=== PATIENT | male | born 1960 | race Caucasian/White ===

== ENCOUNTER 2021-11-22 12:31 | Emergency (ER) | payer MEDICARE, SELFPAY ==
[2021-11-22 12:40] VITALS: BP 162/102; PULSE 82; RESP 16; TEMP 36.7; O2SAT 100
--- NOTE | 2021-11-22 12:43 | ED.GENADULT ---
HPI - General Adult General Chief complaint: Unspecified Stated complaint: Med Refill Time Seen by Provider: 11/22/21 12:40 Source: patient and RN notes reviewed History of Present Illness HPI narrative: Patient is a 61-year-old male who presents the urgent care with request for medication refill on his Keppra and pregabalin. It was noted in patient's pharmacy that he has not refilled her Keppra since April and his pregabalin since August. Patient states that his physician has no longer taking responsibility for refilling his medications because he is missed several appointments . Patient states that he has not seen his provider in a very long time and has been off of his medications since his last refills. Patient is very adamant about getting his refilled medications. Denies of any acute complaints or seizure activity. No acute distress noted. Patient aware of the plan of care. Some parts of this dictation were generated by voice recognition software and may contain typographical and/or grammatical inaccuracies. Related Data Home Medications Medication Instructions Recorded Confirmed levetiracetam 500 mg tablet 500 mg PO BID 11/22/21 11/22/21 pregabalin 300 mg capsule 300 mg PO BID 11/22/21 11/22/21 Allergies Allergy/AdvReac Type Severity Reaction Status Date / Time paliperidone [From Invega] Allergy Anaphylaxis Verified 11/22/21 12:47 Review of Systems Review of Systems: CONSTITUTIONAL: Denies fever, chills, or sweats. EYES: Denies visual changes, redness, or discharge. ENT: Denies rhinorrhea, congestion, sore throat, or otalgia. CARDIOVASCULAR: Denies chest pain, palpitations, or edema. RESPIRATORY: Denies cough or dyspnea. GASTROINTESTINAL: Denies abdominal pain, nausea, vomiting, or diarrhea. GENITOURINARY: Denies dysuria or hematuria. SKIN: Denies rash or itching. MUSCULOSKELETAL: Denies back pain, joint pain, or myalgia. NEUROLOGIC: Denies headache, numbness, or weakness. All other systems reviewed are negative, except as documented in HPI. PMFSH Comments At the time of my signature, I reviewed and agree with the nursing past medical, surgical, social, and family history. There is no relevant family history pertinent to the patient complaint. Exam Narrative: Exam not complete due to elopement Course Course Level of Care: Express Care Visit Vital Signs Vital signs: Vital Signs Temperature 98.1 F 11/22/21 12:40 Pulse Rate 82 11/22/21 12:40 Respiratory Rate 16 11/22/21 12:40 Blood Pressure 162/102 H 11/22/21 12:40 Pulse Oximetry 100 11/22/21 12:40 Oxygen Delivery Room Air 11/22/21 12:40 Temperature 98.1 F 11/22/21 12:49 Pulse Rate 82 11/22/21 12:49 Respiratory Rate 16 11/22/21 12:49 Blood Pressure 162/102 H 11/22/21 12:49 Pulse Oximetry 100 11/22/21 12:49 Oxygen Delivery Room Air 11/22/21 12:49 Reviewed-patient is informed that they may have pre-hypertension or hypertension based on a blood pressure reading in the department. I recommend the patient call the primary care provider listed on their discharge instructions or a physician of their choice this week to arrange follow-up for further evaluation of possible pre-hypertension or hypertension. Medical Decision Making MDM Narrative Medical decision making narrative: Discussed extensively with the patient that our facility is not responsible for refilling chronic medications, especially those that you have not taken in 6 or 7 months. Patient was visibly upset and got aggressive demanding his medication refills. I did call and speak to the office, patient's previous primary care Dr. Osman, and they stated that they did not send the patient to our facility but they did agree that they dropped him as a patient for not showing up to appointments since February 2021 and missing and rescheduling chronically. Phone call was discussed with the patient and he was still very adamant about getting has appropriate ca
[2021-11-22 12:49] VITALS: BP 162/102; PULSE 82; RESP 16; TEMP 36.7; O2SAT 100
== END 2021-11-22 12:58 | disposition left against medical advice (07) ==
LOC: EXPBETH 12:36
PROVIDERS: Emergency Provider Nurse Practitioner Family; PCP Internal Medicine
DX: Z76.0 Encounter for issue of repeat prescription (principal); I10 Essential (primary) hypertension; J44.9 Chronic obstructive pulmonary disease, unspecified; M79.7 Fibromyalgia; G40.909 Epilepsy, unspecified, not intractable, without status epilepticus
CPT/HCPCS: 99211; G0463